=== PATIENT | female | born 1955 | race Caucasian/White ===

== ENCOUNTER 2021-07-03 14:19 | Emergency (ER) | payer MEDICAID ==
[~2021-07-03] VITALS: Ht 170.2 cm; Wt 90.9 kg
[2021-07-03 15:31] LABS: GLUCOMETER DEV NAME(LOC) ERT.5; GLUCOSE,POINT OF CARE 100 MG/DL (70-110)
[2021-07-03 16:31] LABS: BASOPHILS % (AUTO) 1.2 % (0.0-2.0); EOSINOPHILS % (AUTO) 5.9 % (1.0-6.0); HEMATOCRIT 34.5 % (36-46); HEMOGLOBIN 12.1 g/dL (12.0-16.0); LYMPHOCYTES # (AUTO) 2.3 K/uL (1.0-4.8); LYMPHOCYTES % (AUTO) 27.3 % (22.0-44.0); MEAN CORPUSCULAR HEMOGLOBIN 33.1 pg (26.0-34.0); MEAN CORPUSCULAR HGB CONC 35.1 G/dL (31.0-37.0); MEAN CORPUSCULAR VOLUME 94 fL (80-100); MONOCYTES # (AUTO) 0.8 K/uL (0.1-1.0); NEUTROPHILS # (AUTO) 4.7 K/uL (1.8-7.7); NEUTROPHILS % (AUTO) 55.6 % (40.0-70.0); PLATELET COUNT (AUTO) 317 K/uL (150-450); RED BLOOD CELL COUNT(AUTO) 3.66 MIL/uL (4.00-5.20); RED CELL DISTRIBUTION WIDTH 13.7 % (11.5-14.5)
[2021-07-03 16:39] LABS: ANION GAP 4 mmol/L (8-16); CALCIUM, TOTAL 9.6 mg/dL (8.8-10.5); CARBON DIOXIDE 30 mmol/L (22-29); CHLORIDE 97 mmol/L (98-107); CREATININE 0.72 mg/dL (0.60-1.30); GLOMERULAR FILTR. RATE CALC > 60 mL/min (>60); GLUCOSE,RANDOM 107 mg/dL (70-110); POTASSIUM 4.4 mmol/L (3.5-5.1); SODIUM SERUM 131 mmol/L (136-145); UREA NITROGEN, BLOOD 12 mg/dL (7-18)
[2021-07-03 16:45] LABS: ALANINE AMINOTRANSFERASE 42 U/L (12-78); ALBUMIN 3.3 g/dL (3.4-5.0); ALKALINE PHOSPHATASE 77 U/L (46-116); ASPARTATE AMINOTRANSFERASE 28 U/L (15-37); BILIRUBIN,TOTAL 0.2 mg/dL (0.1-1.0); TOTAL PROTEIN, SERUM 7.5 g/dL (6.4-8.2)
[2021-07-03 16:49] LABS: B-TYPE NATRIURETIC PEPTIDE 53 pg/mL (0-100)
[2021-07-03 17:21] LABS: COVID AG,FIA SOURCE NASAL SWAB
[2021-07-03] MEDS ORDERED: ATOR40TA71 PO (17:46)
[2021-07-03] MEDS ORDERED: PRIM250T3 PO (17:46)
[2021-07-03] MEDS ORDERED: LOSA-382 PO (17:47)
[2021-07-03] MEDS ORDERED: CARV3.1231 PO (17:54)
[2021-07-03 18:20] VITALS: BP 152/72
[2021-07-03] MEDS ORDERED: VENL25TA47 PO (18:24)
[2021-07-03 18:31] LABS: GLUCOSE,POINT OF CARE 120 MG/DL (70-110)
[2021-07-03] MEDS ORDERED: ASPI-1450 PO (18:34)
[2021-07-03] MEDS ORDERED: DOCU-270 PO (18:34)
[2021-07-03] MEDS ORDERED: METF-1211 PO (18:34)
[2021-07-03] MEDS ORDERED: CHOL-35 PO (18:36)
[2021-07-03] MEDS ORDERED: NIFE90TA65 PO (18:38)
[2021-07-03] MEDS ORDERED: SENN-160 PO (18:40)
[2021-07-03] MEDS ORDERED: PANT-31 PO (18:42)
[2021-07-03] MEDS ORDERED: ARIP5TAB58 PO (18:46)
[2021-07-03] MEDS ORDERED: DOXYCYCLINE HYCLATE 100 MG TABLET PO ONE (19:00)
[2021-07-03] MEDS ORDERED: FUROSEMIDE 20 MG TABLET PO ONE (19:15)
== END 2021-07-03 22:08 | disposition home or self-care (01) ==
LOC: EMS 14:19
DX: R60.0 Localized edema (principal); L40.50 Arthropathic psoriasis, unspecified; I11.0 Hypertensive heart disease with heart failure; I50.9 Heart failure, unspecified; E11.9 Type 2 diabetes mellitus without complications; Z87.891 Personal history of nicotine dependence; Z20.822 Contact with and (suspected) exposure to COVID-19
CPT/HCPCS: 80053; 82962; 83880; 85025; 93005; 99284

== ENCOUNTER 2021-08-09 21:33 | Inpatient (IN) | payer MEDICARE, MEDICAID ==
[~2021-08-09] VITALS: Ht 162.6 cm; Wt 88.7 kg
[~2021-08-09 21:33] MED LIST: ARIP5TAB58 PO; ATOR40TA71 PO; CARV3.1231 PO; CHOL-35 PO; DOCU-270 PO; LOSA-382 PO; METF-1211 PO; NIFE90TA65 PO; PANT-31 PO; PRIM250T3 PO; SENN-160 PO; VENL25TA47 PO
[2021-08-09] MEDS ORDERED: ONDANSETRON HCL 4 MG/2 ML VIAL IVP ONE (22:00)
[2021-08-09 22:15] LABS: BASOPHILS % (AUTO) 0.8 % (0.0-2.0); EOSINOPHILS % (AUTO) 6.1 % (1.0-6.0); HEMATOCRIT 34.3 % (36-46); HEMOGLOBIN 11.9 g/dL (12.0-16.0); LYMPHOCYTES # (AUTO) 1.8 K/uL (1.0-4.8); LYMPHOCYTES % (AUTO) 21.2 % (22.0-44.0); MEAN CORPUSCULAR HEMOGLOBIN 32.8 pg (26.0-34.0); MEAN CORPUSCULAR HGB CONC 34.8 G/dL (31.0-37.0); MEAN CORPUSCULAR VOLUME 94 fL (80-100); MONOCYTES # (AUTO) 0.9 K/uL (0.1-1.0); MONOCYTES % (AUTO) 10.3 % (2.0-9.0); NEUTROPHILS # (AUTO) 5.4 K/uL (1.8-7.7); NEUTROPHILS % (AUTO) 61.6 % (40.0-70.0); PLATELET COUNT (AUTO) 325 K/uL (150-450); RED BLOOD CELL COUNT(AUTO) 3.64 MIL/uL (4.00-5.20); RED CELL DISTRIBUTION WIDTH 14.1 % (11.5-14.5)
[2021-08-09 22:16] LABS: GLUCOSE,POINT OF CARE 209 MG/DL (70-110)
[2021-08-09] MEDS ORDERED: FURO20 PO (22:16)
[2021-08-09] MEDS ORDERED: BUPR-93 PO (22:16)
[2021-08-09] MEDS ORDERED: ASPI-1450 PO (22:16)
[2021-08-09] MEDS ORDERED: BUME1TAB34 PO (22:16)
[2021-08-09] MEDS ORDERED: CARV25 PO (22:16)
[2021-08-09 22:23] LABS: ANION GAP 10 mmol/L (8-16); CALCIUM, TOTAL 9.3 mg/dL (8.8-10.5); CARBON DIOXIDE 28 mmol/L (22-29); CHLORIDE 92 mmol/L (98-107); CREATININE 0.98 mg/dL (0.60-1.30); GLOMERULAR FILTR. RATE CALC 57 mL/min (>60); GLUCOSE,RANDOM 212 mg/dL (70-110); POTASSIUM 3.7 mmol/L (3.5-5.1); SODIUM SERUM 130 mmol/L (136-145); UREA NITROGEN, BLOOD 17 mg/dL (7-18)
[2021-08-09 22:29] LABS: ALANINE AMINOTRANSFERASE 41 U/L (12-78); ALBUMIN 3.3 g/dL (3.4-5.0); ALKALINE PHOSPHATASE 85 U/L (46-116); ASPARTATE AMINOTRANSFERASE 28 U/L (15-37); BILIRUBIN,TOTAL 0.2 mg/dL (0.1-1.0); D-DIMER 0.34 mg/L FEU (0.00-0.50); INR 1.1 (0.9-1.1); LIPASE 134 U/L (73-393); PROTHROMBIN TIME 11.6 SEC (9.4-11.6); TOTAL PROTEIN, SERUM 7.5 g/dL (6.4-8.2)
[2021-08-09 22:47] LABS: COVID AG,FIA SOURCE NASAL SWAB
[2021-08-09 22:54] LABS: APPEARANCE,URINE CLEAR (CLEAR); BILIRUBIN,URINE NEGATIVE (NEGATIVE); GLUCOSE, URINE (UA) NEGATIVE (NEGATIVE); KETONES,URINE TRACE mg/dL (NEGATIVE); LEUKOCYTE ESTERASE ,URINE NEGATIVE (NEGATIVE); NITRATE,URINE NEGATIVE (NEGATIVE); OCCULT BLOOD,URINE NEGATIVE (NEGATIVE); PROTEIN,URINE SEE CONFIRM (NEGATIVE); UROBILINOGEN,URINE 0.2 mg/dL (<=1.0)
[2021-08-09 22:57] LABS: SULFOSALICYLIC ACID,URINE 1+ (Negative)
[2021-08-09 23:01] LABS: AMPHET/METH SCREEN,URINE NEGATIVE (NEGATIVE); BARBITURATE SCREEN, URINE POSITIVE (NEGATIVE); BENZODIAZEPINES SCREEN,URINE NEGATIVE (NEGATIVE); CANNABINOID SCREEN,URINE NEGATIVE (NEGATIVE); COCAINE SCREEN,URINE NEGATIVE (NEGATIVE); METHADONE SCREEN, URINE NEGATIVE (NEGATIVE); OPIATE SCREEN,URINE NEGATIVE (NEGATIVE)
[2021-08-09 23:03] LABS: PHENCYCLIDINE SCREEN,URINE NEGATIVE (NEGATIVE)
[2021-08-09 23:11] LABS: BACTERIA,URINE None Seen /HPF (None Seen); HYALINE CASTS, URINE 0-2 /LPF (None Seen); RBC,URINE None Seen /HPF (0-2); SQUAMOUS EPITHELIAL CELL,UR Moderate /LPF (None Seen); WBC,URINE None Seen /HPF (0-5)
[2021-08-09 23:19] LABS: ERYTHROCYTE SEDIMENTATION RATE 64 MM/HR (0-20)
[2021-08-10 00:29] LABS: B-TYPE NATRIURETIC PEPTIDE 21 pg/mL (0-100)
[2021-08-10] MEDS ORDERED: CefTRIAXone 1 GM/DEXTROSE 50 ML IV ONE (00:45)
[2021-08-10] MEDS ORDERED: AZITHROMYCIN 500 MG/NS 250 ML IV ONE (00:45)
[2021-08-10] MEDS ORDERED: ONDANSETRON HCL 4 MG/2 ML VIAL IVP PRN (01:15)
[2021-08-10 01:39] VITALS: BP 105/54
[2021-08-10] MEDS ORDERED: DEXTROSE 50%-WATER 25 GM/50 ML SYRINGE IVP PRN (04:45)
[2021-08-10] MEDS ORDERED: CETI-89 PO (05:09)
[2021-08-10] MEDS: INSULIN LISPRO 100 UNITS/ML SQ PRN ×4 (06:09→21:10)
[2021-08-10 06:21] LABS: GLUCOMETER DEV NAME(LOC) 5S.1B; GLUCOSE,POINT OF CARE 157 MG/DL (70-110)
[2021-08-10] MEDS: VENLAFAXINE HCL 50 MG TABLET PO SCH (08:25)
[2021-08-10] MEDS: HEPARIN SODIUM,PORCINE 5,000 UNITS/ML VIAL SQ SCH ×2 (08:25→17:14)
[2021-08-10] MEDS: CARVEDILOL 3.125 MG TABLET PO SCH ×2 (08:27→21:06)
[2021-08-10] MEDS: ASPIRIN 81 MG CHEWABLE TABLET PO SCH (08:27)
[2021-08-10] MEDS: PANTOPRAZOLE SODIUM 40 MG DR TABLET PO SCH (08:28)
[2021-08-10] MEDS: LOSARTAN POTASSIUM 50 MG TABLET PO SCH (08:28)
[2021-08-10] MEDS: FUROSEMIDE 20 MG TABLET PO SCH (08:29)
[2021-08-10] MEDS: NIFEdipine 90 MG ER TABLET PO SCH (08:30)
[2021-08-10] MEDS: PRIMIDONE 250 MG TABLET PO SCH ×2 (08:30→21:29)
[2021-08-10 08:56] VITALS: BP 107/60
[2021-08-10] MEDS ORDERED: BuPROPion HCL XL 150 MG ER TABLET PO SCH (09:00)
[2021-08-10] MEDS ORDERED: PANT20TA18 PO (12:59)
[2021-08-10] MEDS ORDERED: ATOR20TA86 PO (12:59)
[2021-08-10] MEDS: ACETAMINOPHEN 325 MG TABLET PO PRN (14:44)
[2021-08-10] MEDS ORDERED: MAGNESIUM SULFATE 4 GM/WATER 100 ML IV PRN (15:00)
[2021-08-10] MEDS ORDERED: MAGNESIUM SULFATE 2 GM/WATER 50 ML IV PRN (15:00)
[2021-08-10] MEDS ORDERED: MAGNESIUM OXIDE 400 MG TABLET PO PRN (15:00)
[2021-08-10 16:36] LABS: GLUCOMETER DEV NAME(LOC) 5N.1C; GLUCOSE,POINT OF CARE 304 MG/DL (70-110)
[2021-08-10] MEDS ORDERED: SODIUM CHLORIDE 0.9% 500 ML IV ONE (16:58)
[2021-08-10 18:27] VITALS: BP 127/60
[2021-08-10] MEDS ORDERED: DENTURE ADHESIVE 68 GM CREAM DT PRN (18:45)
[2021-08-10 20:15] LABS: GLUCOMETER DEV NAME(LOC) 5N.1C; GLUCOSE,POINT OF CARE 157 MG/DL (70-110)
[2021-08-10 20:30] VITALS: BP 138/61
[2021-08-10] MEDS: ATORVASTATIN CALCIUM 20 MG TABLET PO SCH (21:06)
[2021-08-10] MEDS: GABAPENTIN 300 MG CAPSULE PO SCH (21:06)
[2021-08-10] MEDS: INSULIN GLARGINE,HUM.REC.ANLOG 100 UNITS/ML SQ SCH (21:09)
[2021-08-10 22:37] LABS: GLUCOMETER DEV NAME(LOC) 5S.2B; GLUCOSE,POINT OF CARE 238 MG/DL (70-110)
[2021-08-11 00:19] VITALS: BP 168/75
[2021-08-11] MEDS: HEPARIN SODIUM,PORCINE 5,000 UNITS/ML VIAL SQ SCH ×4 (00:23→23:20)
[2021-08-11] MEDS: CefTRIAXone 1 GM/DEXTROSE 50 ML IV SCH ×2 (00:24→23:20)
[2021-08-11 04:31] VITALS: BP 139/66
[2021-08-11] MEDS: INSULIN LISPRO 100 UNITS/ML SQ PRN ×4 (06:02→20:27)
[2021-08-11] MEDS: ASPIRIN 81 MG CHEWABLE TABLET PO SCH (07:58)
[2021-08-11] MEDS: LOSARTAN POTASSIUM 50 MG TABLET PO SCH (07:59)
[2021-08-11] MEDS: CARVEDILOL 3.125 MG TABLET PO SCH ×2 (07:59→20:05)
[2021-08-11] MEDS: FUROSEMIDE 20 MG TABLET PO SCH (08:00)
[2021-08-11] MEDS: VENLAFAXINE HCL 50 MG TABLET PO SCH (08:00)
[2021-08-11] MEDS: PRIMIDONE 250 MG TABLET PO SCH ×2 (08:00→20:05)
[2021-08-11 08:01] LABS: GLUCOMETER DEV NAME(LOC) 5S.2B; GLUCOSE,POINT OF CARE 205 MG/DL (70-110)
[2021-08-11] MEDS: PANTOPRAZOLE SODIUM 40 MG DR TABLET PO SCH (08:01)
[2021-08-11] MEDS: GABAPENTIN 300 MG CAPSULE PO SCH ×3 (08:01→20:05)
[2021-08-11] MEDS: NIFEdipine 90 MG ER TABLET PO SCH (08:01)
[2021-08-11] MEDS: BuPROPion HCL XL 150 MG ER TABLET PO SCH (08:02)
[2021-08-11] MEDS: AZITHROMYCIN 250 MG TABLET PO SCH (08:02)
[2021-08-11 08:34] VITALS: BP 129/61
[2021-08-11] MEDS: ACETAMINOPHEN 325 MG TABLET PO PRN ×2 (10:01→20:06)
[2021-08-11 15:02] LABS: BASOPHILS % (AUTO) 0.8 % (0.0-2.0); EOSINOPHILS % (AUTO) 4.9 % (1.0-6.0); HEMATOCRIT 31.8 % (36-46); HEMOGLOBIN 11.1 g/dL (12.0-16.0); LYMPHOCYTES # (AUTO) 2.2 K/uL (1.0-4.8); LYMPHOCYTES % (AUTO) 29.5 % (22.0-44.0); MEAN CORPUSCULAR HGB CONC 34.8 G/dL (31.0-37.0); MEAN CORPUSCULAR VOLUME 95 fL (80-100); MONOCYTES # (AUTO) 0.6 K/uL (0.1-1.0); MONOCYTES % (AUTO) 7.8 % (2.0-9.0); NEUTROPHILS # (AUTO) 4.3 K/uL (1.8-7.7); PLATELET COUNT (AUTO) 292 K/uL (150-450); RED BLOOD CELL COUNT(AUTO) 3.36 MIL/uL (4.00-5.20); RED CELL DISTRIBUTION WIDTH 13.8 % (11.5-14.5)
[2021-08-11 15:13] LABS: ANION GAP 5 mmol/L (8-16); CALCIUM, TOTAL 9.2 mg/dL (8.8-10.5); CARBON DIOXIDE 27 mmol/L (22-29); CHLORIDE 93 mmol/L (98-107); CREATININE 0.71 mg/dL (0.60-1.30); GLOMERULAR FILTR. RATE CALC > 60 mL/min (>60); GLUCOSE,RANDOM 255 mg/dL (70-110); POTASSIUM 4.2 mmol/L (3.5-5.1); SODIUM SERUM 125 mmol/L (136-145); UREA NITROGEN, BLOOD 10 mg/dL (7-18)
[2021-08-11] MEDS ORDERED: GABA-1181 PO (15:13)
[2021-08-11] MEDS ORDERED: AMOX1TAB16 PO (15:14)
[2021-08-11 15:18] LABS: ALANINE AMINOTRANSFERASE 35 U/L (12-78); ALBUMIN 2.8 g/dL (3.4-5.0); ALKALINE PHOSPHATASE 74 U/L (46-116); ASPARTATE AMINOTRANSFERASE 24 U/L (15-37); BILIRUBIN,TOTAL 0.1 mg/dL (0.1-1.0); TOTAL PROTEIN, SERUM 6.9 g/dL (6.4-8.2)
[2021-08-11 16:43] VITALS: BP 143/70
[2021-08-11 18:21] LABS: GLUCOMETER DEV NAME(LOC) 5S.2B; GLUCOSE,POINT OF CARE 204 MG/DL (70-110)
[2021-08-11] MEDS: ATORVASTATIN CALCIUM 20 MG TABLET PO SCH (20:05)
[2021-08-11] MEDS: INSULIN GLARGINE,HUM.REC.ANLOG 100 UNITS/ML SQ SCH (20:27)
[2021-08-11 21:46] VITALS: BP 132/59
[2021-08-11 23:35] LABS: GLUCOMETER DEV NAME(LOC) 5N.1C; GLUCOSE,POINT OF CARE 202 MG/DL (70-110)
[2021-08-11 23:36] LABS: GLUCOMETER DEV NAME(LOC) 5N.1C; GLUCOSE,POINT OF CARE 257 MG/DL (70-110)
[2021-08-12 01:15] VITALS: BP 134/66
[2021-08-12 04:34] VITALS: BP 141/74
[2021-08-12] MEDS: INSULIN LISPRO 100 UNITS/ML SQ PRN ×4 (06:26→21:53)
[2021-08-12 08:15] VITALS: BP 132/72
[2021-08-12] MEDS: VENLAFAXINE HCL 50 MG TABLET PO SCH (09:00)
[2021-08-12] MEDS: AZITHROMYCIN 250 MG TABLET PO SCH (09:34)
[2021-08-12] MEDS: BuPROPion HCL XL 150 MG ER TABLET PO SCH (09:35)
[2021-08-12] MEDS: ASPIRIN 81 MG CHEWABLE TABLET PO SCH (09:35)
[2021-08-12] MEDS: NIFEdipine 90 MG ER TABLET PO SCH (09:35)
[2021-08-12] MEDS: PRIMIDONE 250 MG TABLET PO SCH ×2 (09:37→20:16)
[2021-08-12] MEDS: PANTOPRAZOLE SODIUM 40 MG DR TABLET PO SCH (09:37)
[2021-08-12] MEDS: FUROSEMIDE 20 MG TABLET PO SCH (09:37)
[2021-08-12] MEDS: CARVEDILOL 3.125 MG TABLET PO SCH ×2 (09:38→20:17)
[2021-08-12] MEDS: LOSARTAN POTASSIUM 50 MG TABLET PO SCH (09:38)
[2021-08-12] MEDS: GABAPENTIN 300 MG CAPSULE PO SCH ×3 (09:39→20:17)
[2021-08-12] MEDS: HEPARIN SODIUM,PORCINE 5,000 UNITS/ML VIAL SQ SCH ×2 (09:51→16:29)
[2021-08-12 12:38] VITALS: BP 140/73
[2021-08-12 12:44] LABS: HEMATOCRIT 33.7 % (36-46); HEMOGLOBIN 11.6 g/dL (12.0-16.0); LYMPHOCYTES # (AUTO) 2.2 K/uL (1.0-4.8); LYMPHOCYTES % (AUTO) 30.3 % (22.0-44.0); MEAN CORPUSCULAR HEMOGLOBIN 32.8 pg (26.0-34.0); MEAN CORPUSCULAR HGB CONC 34.4 G/dL (31.0-37.0); MEAN CORPUSCULAR VOLUME 95 fL (80-100); MONOCYTES # (AUTO) 0.7 K/uL (0.1-1.0); MONOCYTES % (AUTO) 9.3 % (2.0-9.0); NEUTROPHILS % (AUTO) 54.4 % (40.0-70.0); PLATELET COUNT (AUTO) 289 K/uL (150-450); RED BLOOD CELL COUNT(AUTO) 3.53 MIL/uL (4.00-5.20); RED CELL DISTRIBUTION WIDTH 13.9 % (11.5-14.5)
[2021-08-12 12:56] LABS: GLUCOMETER DEV NAME(LOC) 5N.1C; GLUCOSE,POINT OF CARE 213 MG/DL (70-110)
[2021-08-12 12:56] LABS: ANION GAP 8 mmol/L (8-16); CALCIUM, TOTAL 9.4 mg/dL (8.8-10.5); CARBON DIOXIDE 26 mmol/L (22-29); CHLORIDE 93 mmol/L (98-107); CREATININE 0.65 mg/dL (0.60-1.30); GLOMERULAR FILTR. RATE CALC > 60 mL/min (>60); GLUCOSE,RANDOM 231 mg/dL (70-110); POTASSIUM 4.2 mmol/L (3.5-5.1); SODIUM SERUM 127 mmol/L (136-145); UREA NITROGEN, BLOOD 9 mg/dL (7-18)
[2021-08-12 12:56] LABS: GLUCOMETER DEV NAME(LOC) 5N.1C; GLUCOSE,POINT OF CARE 208 MG/DL (70-110)
[2021-08-12 13:02] LABS: ALANINE AMINOTRANSFERASE 47 U/L (12-78); ALKALINE PHOSPHATASE 78 U/L (46-116); ASPARTATE AMINOTRANSFERASE 36 U/L (15-37); BILIRUBIN,TOTAL 0.2 mg/dL (0.1-1.0); TOTAL PROTEIN, SERUM 7.3 g/dL (6.4-8.2)
[2021-08-12 16:00] VITALS: BP 147/65
[2021-08-12 19:50] LABS: GLUCOMETER DEV NAME(LOC) 5S.2B; GLUCOSE,POINT OF CARE 163 MG/DL (70-110)
[2021-08-12] MEDS: ACETAMINOPHEN 325 MG TABLET PO PRN (20:17)
[2021-08-12] MEDS: ATORVASTATIN CALCIUM 20 MG TABLET PO SCH (20:17)
[2021-08-12 21:12] VITALS: BP 149/76
[2021-08-12] MEDS: INSULIN GLARGINE,HUM.REC.ANLOG 100 UNITS/ML SQ SCH (21:53)
[2021-08-13 00:36] VITALS: BP 139/73
[2021-08-13] MEDS: CefTRIAXone 1 GM/DEXTROSE 50 ML IV SCH (02:37)
[2021-08-13] MEDS: HEPARIN SODIUM,PORCINE 5,000 UNITS/ML VIAL SQ SCH ×3 (02:37→17:51)
[2021-08-13 04:00] VITALS: BP 141/70
[2021-08-13 04:06] VITALS: BP 149/67
[2021-08-13 05:16] LABS: GLUCOMETER DEV NAME(LOC) 5N.1C; GLUCOSE,POINT OF CARE 206 MG/DL (70-110)
[2021-08-13] MEDS: INSULIN LISPRO 100 UNITS/ML SQ PRN ×3 (06:40→17:54)
[2021-08-13 07:40] LABS: ANION GAP 12 mmol/L (8-16); CALCIUM, TOTAL 9.3 mg/dL (8.8-10.5); CARBON DIOXIDE 22 mmol/L (22-29); CHLORIDE 95 mmol/L (98-107); CREATININE 0.56 mg/dL (0.60-1.30); GLUCOSE,RANDOM 201 mg/dL (70-110); POTASSIUM 4.4 mmol/L (3.5-5.1); SODIUM SERUM 129 mmol/L (136-145); THYROID STIMULATING HORMONE 1.68 uIU/mL (0.36-3.74); UREA NITROGEN, BLOOD 10 mg/dL (7-18)
[2021-08-13 07:42] LABS: GLOMERULAR FILTR. RATE CALC > 60 mL/min (>60)
[2021-08-13] MEDS: AZITHROMYCIN 250 MG TABLET PO SCH (08:29)
[2021-08-13] MEDS: CARVEDILOL 3.125 MG TABLET PO SCH (08:29)
[2021-08-13] MEDS: PANTOPRAZOLE SODIUM 40 MG DR TABLET PO SCH (08:29)
[2021-08-13] MEDS: GABAPENTIN 300 MG CAPSULE PO SCH ×2 (08:30→17:51)
[2021-08-13] MEDS: PRIMIDONE 250 MG TABLET PO SCH (08:31)
[2021-08-13] MEDS: BuPROPion HCL XL 150 MG ER TABLET PO SCH (08:32)
[2021-08-13] MEDS: NIFEdipine 90 MG ER TABLET PO SCH (08:32)
[2021-08-13] MEDS: ASPIRIN 81 MG CHEWABLE TABLET PO SCH (08:32)
[2021-08-13] MEDS: LOSARTAN POTASSIUM 50 MG TABLET PO SCH (08:33)
[2021-08-13] MEDS: VENLAFAXINE HCL 50 MG TABLET PO SCH (09:00)
[2021-08-13] MEDS ORDERED: SODIUM CHLORIDE 1 GM TABLET PO SCH (09:00)
[2021-08-13 09:39] VITALS: BP 138/78
[2021-08-13 17:16] LABS: GLUCOMETER DEV NAME(LOC) 5N.1C; GLUCOSE,POINT OF CARE 188 MG/DL (70-110)
[2021-08-13 20:32] LABS: GLUCOMETER DEV NAME(LOC) 5S.2B; GLUCOSE,POINT OF CARE 312 MG/DL (70-110)
[2021-08-13 20:32] LABS: GLUCOMETER DEV NAME(LOC) 5S.2B; GLUCOSE,POINT OF CARE 142 MG/DL (70-110)
== END 2021-08-13 18:30 | disposition home or self-care (01) | DRG 643 ==
LOC: EMS 21:34 → 5N 08-10 01:44
PROVIDERS: ADMIT Internal Medicine; ATTEND Internal Medicine
DX: E22.2 Syndrome of inappropriate secretion of antidiuretic hormone (principal); G93.41 Metabolic encephalopathy; E11.65 Type 2 diabetes mellitus with hyperglycemia; E83.42 Hypomagnesemia; F32.A Depression, unspecified; D64.9 Anemia, unspecified; I70.0 Atherosclerosis of aorta; G43.909 Migraine, unspecified, not intractable, without status migrainosus; M24.549 Contracture, unspecified hand; I11.0 Hypertensive heart disease with heart failure; Z20.822 Contact with and (suspected) exposure to COVID-19; R11.10 Vomiting, unspecified; Z79.84 Long term (current) use of oral hypoglycemic drugs; Z79.82 Long term (current) use of aspirin; Z87.891 Personal history of nicotine dependence; Z95.2 Presence of prosthetic heart valve; Z79.899 Other long term (current) drug therapy; Z88.1 Allergy status to other antibiotic agents; Z88.2 Allergy status to sulfonamides; Z91.419 Personal history of unspecified adult abuse; Z98.890 Other specified postprocedural states
CPT/HCPCS: 51702; 70450; 71045; 80048; 80053; 81001; 81002; 81003; 82040; 82533; 82962; 83690; 83735; 83880; 83935; 84100; 84300; 84443; 84484; 85025; 85379; 85610; 85651; 87040; 93005; 93306; 99285; G0480; J0456; J0696; J1644; J1815; J2405; J3475; J7040; 36415-L1; 36415-TC; U0003

== ENCOUNTER 2021-08-31 08:43 | Emergency (ER) | payer MEDICARE, MEDICAID ==
[~2021-08-31] VITALS: Ht 170.2 cm; Wt 90.9 kg
[~2021-08-31 08:43] MED LIST changes: +AMOX1TAB16 PO; +ASPI-1450 PO; +ATOR20TA86 PO; -ATOR40TA71 PO; +BUPR-93 PO; -CHOL-35 PO; -DOCU-270 PO; +FURO20 PO; +GABA-1181 PO; -PANT-31 PO; +PANT20TA18 PO; -SENN-160 PO; -VENL25TA47 PO
[2021-08-31] MEDS ORDERED: INSU100V3 SQ (09:06)
[2021-08-31] MEDS ORDERED: INSLAN SQ ×4 (09:06→10:06)
[2021-08-31 09:26] VITALS: BP 123/53
== END 2021-08-31 10:25 | disposition home or self-care (01) ==
LOC: EMS 08:45
DX: E11.9 Type 2 diabetes mellitus without complications (principal); I11.0 Hypertensive heart disease with heart failure; I50.9 Heart failure, unspecified; Z76.0 Encounter for issue of repeat prescription; Z79.84 Long term (current) use of oral hypoglycemic drugs; Z79.899 Other long term (current) drug therapy; Z79.82 Long term (current) use of aspirin; Z88.1 Allergy status to other antibiotic agents
CPT/HCPCS: 82962; 99281; 99282

== ENCOUNTER 2021-09-25 12:29 | Emergency (ER) | payer MEDICAID, MEDICARE ==
[~2021-09-25] VITALS: Ht 170.2 cm; Wt 90.9 kg
[~2021-09-25 12:29] MED LIST changes: +BUPR-50 PO; -BUPR-93 PO; +INSLAN SQ; +INSU100V3 SQ
[2021-09-25 14:59] VITALS: BP 154/73
[2021-09-25 15:03] LABS: BASOPHILS % (AUTO) 0.7 % (0.0-2.0); COVID AG,FIA SOURCE NASOPHARYNGEAL; EOSINOPHILS % (AUTO) 3.6 % (1.0-6.0); HEMATOCRIT 36.1 % (36-46); HEMOGLOBIN 12.5 g/dL (12.0-16.0); LYMPHOCYTES # (AUTO) 2.9 K/uL (1.0-4.8); LYMPHOCYTES % (AUTO) 28.3 % (22.0-44.0); MEAN CORPUSCULAR HEMOGLOBIN 32.7 pg (26.0-34.0); MEAN CORPUSCULAR HGB CONC 34.6 G/dL (31.0-37.0); MEAN CORPUSCULAR VOLUME 95 fL (80-100); MONOCYTES # (AUTO) 0.8 K/uL (0.1-1.0); MONOCYTES % (AUTO) 7.9 % (2.0-9.0); NEUTROPHILS % (AUTO) 59.5 % (40.0-70.0); PLATELET COUNT (AUTO) 333 K/uL (150-450); RED BLOOD CELL COUNT(AUTO) 3.82 MIL/uL (4.00-5.20); RED CELL DISTRIBUTION WIDTH 14.4 % (11.5-14.5)
[2021-09-25] MEDS ORDERED: ARIP10TA38 PO (15:10)
[2021-09-25 15:14] LABS: ANION GAP 4 mmol/L (8-16); CARBON DIOXIDE 32 mmol/L (22-29); CHLORIDE 99 mmol/L (98-107); CREATININE 0.71 mg/dL (0.60-1.30); GLOMERULAR FILTR. RATE CALC > 60 mL/min (>60); GLUCOSE,RANDOM 210 mg/dL (70-110); POTASSIUM 4.1 mmol/L (3.5-5.1); SODIUM SERUM 135 mmol/L (136-145); UREA NITROGEN, BLOOD 7 mg/dL (7-18)
[2021-09-25 15:16] LABS: ACETONE,BLOOD NEGATIVE (NEGATIVE)
[2021-09-25 15:19] LABS: ALANINE AMINOTRANSFERASE 30 U/L (12-78); ALBUMIN 3.7 g/dL (3.4-5.0); ALKALINE PHOSPHATASE 97 U/L (46-116); ASPARTATE AMINOTRANSFERASE 17 U/L (15-37); BILIRUBIN,TOTAL 0.3 mg/dL (0.1-1.0); LIPASE 130 U/L (73-393); TOTAL PROTEIN, SERUM 7.8 g/dL (6.4-8.2)
[2021-09-25 15:28] LABS: INFLUENZA TYPE A NEGATIVE FOR TYPE A (NEGATIVE); INFLUENZA TYPE B NEGATIVE FOR TYPE B (NEGATIVE)
[2021-09-25 15:31] LABS: GLUCOMETER DEV NAME(LOC) ERT.5; GLUCOSE,POINT OF CARE 175 MG/DL (70-110)
[2021-09-25 15:33] LABS: LACTIC ACID 1.7 mmol/L (0.4-2.0)
[2021-09-25] MEDS ORDERED: FURO20 PO (15:40)
[2021-09-25] MEDS ORDERED: POTA8CAP20 PO (15:40)
[2021-09-25] MEDS ORDERED: CEPH-558 PO (15:40)
== END 2021-09-25 16:38 | disposition home or self-care (01) ==
LOC: EMS 12:34
DX: S80.812A Abrasion, left lower leg, initial encounter (principal); E11.65 Type 2 diabetes mellitus with hyperglycemia; L03.116 Cellulitis of left lower limb; R60.0 Localized edema; I11.0 Hypertensive heart disease with heart failure; I50.9 Heart failure, unspecified; Z20.822 Contact with and (suspected) exposure to COVID-19; Z88.1 Allergy status to other antibiotic agents; Z88.8 Allergy status to other drugs, medicaments and biological substances; Z79.4 Long term (current) use of insulin; Z79.899 Other long term (current) drug therapy; X58.XXXA Exposure to other specified factors, initial encounter; Y93.89 Activity, other specified; Y92.89 Other specified places as the place of occurrence of the external cause; Y99.8 Other external cause status
CPT/HCPCS: 80053; 81002; 82009; 82962; 83605; 83690; 84484; 85025; 87804; 99283

== ENCOUNTER 2022-03-18 05:31 | Day surgery (SDC) | payer MEDICARE, MEDICAID ==
[~2022-03-18] VITALS: Ht 170.2 cm; Wt 81.8 kg
[~2022-03-18 05:31] MED LIST changes: +ARIP10TA38 PO; -ARIP5TAB58 PO; +CEPH-558 PO; +CYCLOPENTOLATE HCL 1% 2 ML OPHTHALMIC SOLUTION ONE; +KETOROLAC TROMETHAMINE 0.5% 5 ML OPHTHALMIC SOLUTION ONE; +MOXIFLOXACIN HCL 0.5% 3 ML OPHTHALMIC SOLUTION ONE; +PHENYLEPHRINE HCL 2.5% 2 ML OPHTHALMIC SOLUTION ONE; +POTA8CAP20 PO; +RINGERS SOLUTION,LACTATED 500 ML IV ONE; +TETRACAINE HCL/PF 0.5% 4 ML OPHTHALMIC SOLUTION ONE; +TROPICAMIDE 1% 2 ML OPHTHALMIC SOLUTION ONE
[2022-03-18] MEDS ORDERED: NEOMYCIN/POLYMYXIN B/DEXAMETH 3.5 GM OPHTHALMIC OINTMENT OD ONE (05:32)
[2022-03-18] MEDS ORDERED: BALANCED SALT 15 ML OPHTHALMIC IRRIG.SOLN IO ONE (05:32)
[2022-03-18] MEDS ORDERED: PrednisoLONE ACETATE 1% 5 ML OPHTHALMIC SUSPENSION AD ONE (05:32)
[2022-03-18] MEDS ORDERED: POVIDONE-IODINE 5% 30 ML OPHTHALMIC SOLUTION OD ONE (05:32)
[2022-03-18] MEDS ORDERED: EPINEPHrine 1:1,000 [1 MG/ML] VIAL ET ONE (05:32)
[2022-03-18] MEDS ORDERED: LIDOCAINE/PF 1% 2 ML VIAL CAUDAL ONE (05:32)
[2022-03-18] MEDS ORDERED: FentaNYL CITRATE PF 100 MCG/2 ML VIAL IVP ONE (05:32)
[2022-03-18] MEDS ORDERED: HYALURONATE SOD 8.5MG/0.85ML 10 MG/ML SYRINGE IO ONE (05:32)
[2022-03-18] MEDS ORDERED: TETRACAINE HCL/PF 0.5% 4 ML OPHTHALMIC SOLUTION OD ONE (05:32)
[2022-03-18] MEDS ORDERED: MIDAZOLAM HCL 2 MG/2 ML VIAL IVP ONE (05:32)
[2022-03-18 06:00] LABS: COVID AG,FIA SOURCE NASAL SWAB
[2022-03-18] MEDS ORDERED: RINGERS SOLUTION,LACTATED 500 ML IV ONE (06:00)
[2022-03-18] MEDS ORDERED: PROPARACAINE HCL 0.5% 15 ML OPHTHALMIC SOLUTION OD ONE (06:30)
[2022-03-18] MEDS: TROPICAMIDE 1% 2 ML OPHTHALMIC SOLUTION OD SCH ×3 (06:43→06:58)
[2022-03-18] MEDS: MOXIFLOXACIN HCL 0.5% 3 ML OPHTHALMIC SOLUTION OD SCH ×3 (06:44→06:58)
[2022-03-18] MEDS: KETOROLAC TROMETHAMINE 0.5% 5 ML OPHTHALMIC SOLUTION OD SCH ×3 (06:44→06:58)
[2022-03-18] MEDS: CYCLOPENTOLATE HCL 1% 2 ML OPHTHALMIC SOLUTION OD SCH ×3 (06:44→06:58)
[2022-03-18] MEDS: PHENYLEPHRINE HCL 2.5% 2 ML OPHTHALMIC SOLUTION OD SCH ×3 (06:44→06:58)
[2022-03-18 06:56] LABS: GLUCOMETER DEV NAME(LOC) SDS.; GLUCOSE,POINT OF CARE 273 MG/DL (70-110)
[2022-03-18] MEDS ORDERED: LIDOCAINE/PF 1% 2 ML VIAL ONE (06:59)
[2022-03-18] MEDS ORDERED: EPINEPHrine 1:1,000 [1 MG/ML] VIAL ONE (06:59)
[2022-03-18] MEDS ORDERED: TETRACAINE HCL/PF 0.5% 4 ML OPHTHALMIC SOLUTION ONE (07:06)
[2022-03-18] MEDS ORDERED: NEOMYCIN/POLYMYXIN B/DEXAMETH 3.5 GM OPHTHALMIC OINTMENT ONE (07:15)
[2022-03-18] MEDS ORDERED: PrednisoLONE ACETATE 1% 5 ML OPHTHALMIC SUSPENSION ONE (07:17)
== END 2022-03-18 10:05 | disposition home or self-care (01) ==
LOC: SURGERY 05:31
PROVIDERS: ATTEND Ophthalmology
DX: E11.36 Type 2 diabetes mellitus with diabetic cataract (principal); H25.11 Age-related nuclear cataract, right eye; I10 Essential (primary) hypertension; F32.9 Major depressive disorder, single episode, unspecified; Z20.822 Contact with and (suspected) exposure to COVID-19; Z79.899 Other long term (current) drug therapy; Z88.8 Allergy status to other drugs, medicaments and biological substances; Z88.2 Allergy status to sulfonamides; F17.210 Nicotine dependence, cigarettes, uncomplicated; Z86.73 Personal history of transient ischemic attack (TIA), and cerebral infarction without residual deficits; Z98.890 Other specified postprocedural states
CPT/HCPCS: 66984; 87426; 82962; 93005; J0171; J3010; J3490; J2250; Q9967; J7120; V2632; C9803